=== PATIENT | male | born 1965 | race Two or more races ===

== ENCOUNTER 2021-04-23 20:28 | Inpatient (IN) | payer OTHER ==
[~2021-04-23] VITALS: Ht 165.1 cm; Wt 65.8 kg
[2021-04-23] MEDS: IV NS 1000 ML 1,000 ML IV ONE
[2021-04-23] MEDS: PIPERACILLIN SODIUM/TAZOBACTAM 3.375 G in IV DEXTROSE 5% 50 ML IV ONE (00:10)
[2021-04-23] MEDS ORDERED: LEVO175T7 PO (21:10)
[2021-04-23] MEDS ORDERED: DEXA4TAB PO (21:10)
[2021-04-23 22:47] LABS: HEMATOCRIT 29.7 % (36.7-47.1); MEAN CORPUSCULAR HEMOGLOBIN 29.1 uug (23.8-33.4); MEAN CORPUSCULAR VOLUME 87.2 fL (73.0-96.2); PLATELET COUNT (AUTO) 294 K/uL (152-348)
[2021-04-23 22:53] LABS: CARBON DIOXIDE 29 mmol/L (21-32); CHLORIDE 86 mmol/L (98-107); CREATININE 0.6 mg/dL (0.6-1.3); GLUCOSE 155 mg/dL (74-106); POTASSIUM 3.5 mmol/L (3.5-5.1); UREA NITROGEN, BLOOD 11 mg/dL (7-18)
[2021-04-23] MEDS ORDERED: VANCOMYCIN 1G/D5W 200 ML PIGGYBACK IV ONE (23:15)
[2021-04-23] MEDS ORDERED: VANCOMYCIN IV 200 ML ONE (23:34)
[2021-04-23] MEDS ORDERED: PIPERACILLIN/TAZOBACTAM/D5W 50 ML IV ONE (23:34)
[2021-04-24] MEDS: IV NS 1000 ML 1,000 ML IV ONE
[2021-04-24] MEDS: PIPERACILLIN SODIUM/TAZOBACTAM 3.375 G in IV DEXTROSE 5% 50 ML IV ONE (00:05)
--- NOTE | 2021-04-24 01:09 | NUR ---
PAGED [facility] FOR PANEL CALL
--- NOTE | 2021-04-24 03:34 | NUR ---
Report given to LIN Sen to admit patient at [facility]. Patient in no acute distress, laying in bed at this time.
[2021-04-24 04:00] VITALS: BP 126/81
[2021-04-24] MEDS ORDERED: MORPHINE SULFATE 2 MG/1 ML DISP.SYRIN IV PRN (05:45)
[2021-04-24] MEDS ORDERED: ONDANSETRON 4 MG/2 ML VIAL IV PRN (05:45)
[2021-04-24] MEDS ORDERED: MAGNESIUM HYDROXIDE 30 ML LIQUID UDC PO PRN (05:45)
[2021-04-24] MEDS ORDERED: Z GUARD REMEDY PASTE 57 GM TUBE TOP PRN (05:45)
--- NOTE | 2021-04-24 06:00 | NUR ---
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 Rt pigtail catheter in the right upper anterior chest.Denies chest pain or discomfort. Surgical site intact on anterior neck and upper mid chest.Patient refused to place chest catheter suction at this time .Stated he cannot tolerate it.Iv on right AC 20 g patent and intact.Started IVF fluid tolerated well.Safety measures in place. Assisted patient to bedside commode .BM x1.Call light with in reach. Will endorse to oncoming shift
[2021-04-24] MEDS ORDERED: PIPERACILLIN SODIUM/TAZOBACTAM 3.375 G in IV DEXTROSE 5% 50 ML IV ONE (06:15)
[2021-04-24] MEDS: LEVOTHYROXINE SODIUM 175 MCG TABLET PO SCH (06:23)
[2021-04-24] MEDS: IV NS 1000 ML 1,000 ML IV PRN (06:36)
[2021-04-24] MEDS: DEXAMETHASONE 4 MG TABLET PO SCH ×3 (06:37→21:20)
[2021-04-24 07:32] LABS: HEMATOCRIT 27.4 % (36.7-47.1); MEAN CORPUSCULAR HEMOGLOBIN 29.8 uug (23.8-33.4); MEAN CORPUSCULAR VOLUME 86.9 fL (73.0-96.2); PLATELET COUNT (AUTO) 262 K/uL (152-348)
[2021-04-24 07:46] LABS: ALANINE AMINOTRANSFERASE 82 U/L (16-63); ALKALINE PHOSPHATASE 162 U/L (50-136); ASPARTATE AMINOTRANSFERASE 21 U/L (15-37); BILIRUBIN,TOTAL 0.4 mg/dL (0.2-1.0); CARBON DIOXIDE 29 mmol/L (21-32); CHLORIDE 88 mmol/L (98-107); CREATININE 0.5 mg/dL (0.6-1.3); GLUCOSE 128 mg/dL (74-106); MAGNESIUM 1.8 mg/dL (1.8-2.4); PHOSPHOROUS 3.1 mg/dL (2.5-4.9); POTASSIUM 3.2 mmol/L (3.5-5.1); TOTAL PROTEIN, SERUM 5.4 g/dL (6.4-8.2); UREA NITROGEN, BLOOD 8 mg/dL (7-18)
[2021-04-24 07:49] LABS: THYROID STIMULATING HORMONE 0.693 mIU/mL (0.358-3.740)
[2021-04-24 08:00] VITALS: BP 120/80
--- NOTE | 2021-04-24 08:30 | NUR ---
awake oriented x 4, looks weak, on 10l/mask sat at 95%, on a sitting position, short of breath with activity, tele SR 98, denies of pain, right upper chest tube (pigtail)with an attached container draining serous whitish winter in color, incision on lower neck and midline chest area with steristrips-dry and intact, assisted to bedside commode with minimal assist-had voided and BM, seen by Dr Valadez- with orders, will continue to monitor
[2021-04-24] MEDS: ENOXAPARIN SODIUM 40 MG/0.4 ML DISP.SYRIN SQ SCH (08:41)
[2021-04-24] MEDS ORDERED: POTASSIUM CHLORIDE 20 MEQ TAB.PRT.SR PO ONE (09:30)
[2021-04-24] MEDS: VANCOMYCIN IV 1,000 MG in IV DEXTROSE 5% 250 ML IV SCH ×2 (09:58→18:18)
[2021-04-24] MEDS: POTASSIUM CHLORIDE 50 ML IV SCH ×2 (11:40→12:43)
--- NOTE | 2021-04-24 11:48 | NUR ---
WOUND CARE CONSULT: PT PRESENTS WITH BONY SACRAL AREA, PRESENT ON ADMISSION. RECOMMENDATIONS MADE FOR SKIN PROTECTION. DISCUSSED WITH NURSING STAFF. MD IN AGREEMENT WITH PLAN OF CARE.
[2021-04-24] MEDS ORDERED: PIPERACILLIN SODIUM/TAZOBACTAM 3.375 G in IV DEXTROSE 5% 50 ML IV SCH (12:00)
--- NOTE | 2021-04-24 13:00 | NUR ---
seen by Dr Stockton and spoke to [place] to be transferred to [facility]
[2021-04-24] MEDS: PIPERACILLIN SODIUM/TAZOBACTAM 3.375 G in IV DEXTROSE 5% 50 ML IV SCH ×2 (14:27→20:38)
[2021-04-24 15:52] VITALS: BP 99/60
[2021-04-24] MEDS: ALBUTEROL SULFATE 2.5 MG/ 0.5 ML NEBU NEB PRN ×2 (17:00→21:23)
[2021-04-24] MEDS: IPRATROPIUM BROMIDE 0.5 MG/2.5 ML NEBU NEB PRN ×2 (17:00→21:23)
--- NOTE | 2021-04-24 17:00 | NUR ---
Patient received breathing treatments from respiratory therapist. O2 saturating at 92% on 10L face mask with some labored breathing. Respiratory therapist switched patient to non-rebreather mask with 15L, now saturating 98-99%. Patient tolerating non-rebreather mask well. No signs or symptoms of respiratory distress. Continuous pulse ox at bedside. Will continue to monitor patient.
--- NOTE | 2021-04-24 18:37 | NUR ---
no distress noted, remains on NRB mask at 15l/nc, on continuous pulse oximetry sat at 98%, chest tube pigtail output this shift- 70 ml, at bedside, urine specimen sent earlier, tele ST-[id number], all needs attended and met call light within reach, safety measures maintained
[2021-04-24 20:00] VITALS: BP 124/72
[2021-04-24 20:40] VITALS: BP 124/72
[2021-04-25] VITALS (7 sets, daily range): BP systolic 99–137; BP diastolic 62–84
--- NOTE | 2021-04-25 00:30 | NUR ---
Patient was place on 10LPM via non-rebreather mask by RT at around 2200. Patient now complaining of SOB, though O2 sat at 95%. Titrated O2 back to 15LPM via non-rebreather mask. O2 sat up to 97% and stated he feels better.
[2021-04-25] MEDS: IPRATROPIUM BROMIDE 0.5 MG/2.5 ML NEBU NEB PRN ×3 (00:33→15:54)
[2021-04-25] MEDS: ALBUTEROL SULFATE 2.5 MG/ 0.5 ML NEBU NEB PRN ×3 (00:34→15:54)
[2021-04-25] MEDS: PIPERACILLIN SODIUM/TAZOBACTAM 3.375 G in IV DEXTROSE 5% 50 ML IV SCH ×4 (01:27→19:24)
[2021-04-25] MEDS: VANCOMYCIN IV 1,000 MG in IV DEXTROSE 5% 250 ML IV SCH (03:23)
[2021-04-25] MEDS: IV NS 1000 ML 1,000 ML IV PRN ×2 (03:24→14:36)
[2021-04-25] MEDS: DEXAMETHASONE 4 MG TABLET PO SCH ×3 (06:09→21:21)
[2021-04-25] MEDS: LEVOTHYROXINE SODIUM 175 MCG TABLET PO SCH (06:09)
--- NOTE | 2021-04-25 06:28 | NUR ---
AAOx4. In no apparent distress. Stated he is feeling weak. Denies any pain or SOB. On O2 at 15LPM via non-rebreather mask. O2 sat fluctuates between 93-97%. Sinus tachy on tele with HR of 104/min. Steri strips on neck to chest area dry, intact and clean. Chest tube on left chest area intact and draining. IV site on right FA and right AC intact and patent. IVF infusing. No adverse reaction noted from IV antibiotics. Needs attended to and met. Safety measure maintained and call light within reached.
[2021-04-25 06:34] LABS: HEMATOCRIT 29.1 % (36.7-47.1); MEAN CORPUSCULAR HEMOGLOBIN 29.3 uug (23.8-33.4); MEAN CORPUSCULAR VOLUME 86.7 fL (73.0-96.2); PLATELET COUNT (AUTO) 231 K/uL (152-348)
[2021-04-25 06:54] LABS: CARBON DIOXIDE 31 mmol/L (21-32); CHLORIDE 87 mmol/L (98-107); CREATININE 0.5 mg/dL (0.6-1.3); GLUCOSE 136 mg/dL (74-106); MAGNESIUM 1.8 mg/dL (1.8-2.4); PHOSPHOROUS 3.3 mg/dL (2.5-4.9); UREA NITROGEN, BLOOD 4 mg/dL (7-18)
[2021-04-25 07:10] LABS: POTASSIUM 2.4 mmol/L (3.5-5.1)
--- NOTE | 2021-04-25 07:59 | NUR ---
received patient laying in bed in no apparent distress at this time. patient is alert and oriented x4 telugu speaking. patient currently with pigtail chest tube to right chest in place and patent appears to be draining well. patient currently on 15l nrb tolerating well, continuos pulse oximetry show spo2 at 96% patient with respirations even and non-labored at this time, denies any shortness of breath at this time. patient denies pain at this time. patient currently with iv to right f/a infusing ns at 100cc, iv in place and patent. patient denies any pain or discomfort at this time. reminded patient to use call light for assistance, side rails up x2, call light within reach.
--- NOTE | 2021-04-25 08:10 | NUR ---
relayed critical lab values of k+ 2.7 and calcium 5.7 to [facility] with new order for potassium 40meq po x1 and patassium 40meq iv, orders noted and carried out.
[2021-04-25] MEDS ORDERED: POTASSIUM CHLORIDE 20 MEQ TAB.PRT.SR PO ONE (08:15)
[2021-04-25] MEDS: POTASSIUM CHLORIDE 50 ML IV SCH ×4 (08:50→11:21)
[2021-04-25] MEDS: ENOXAPARIN SODIUM 40 MG/0.4 ML DISP.SYRIN SQ SCH (08:52)
[2021-04-25] MEDS ORDERED: CALCIUM GLUCONATE IV 2 GM in IV NORMAL SALINE 100 ML IV ONE ×2 (10:30)
[2021-04-25] MEDS: VANCOMYCIN IV 1,250 MG in IV DEXTROSE 5% 250 ML IV SCH ×2 (12:23→20:06)
--- NOTE | 2021-04-25 19:30 | NUR ---
Received patient lying in bed. Family at bedside. AAOx4. In no acute distress. Still appears weak. On O2 at 10LPM via simple mask in place. O2 sat fluctuating between 90-95% on continuous pulse oximeter monitor. Denies any pain or SOB at this time. Sinus tachy on tele with HR of 106/min. IV site on right AC and right FA intact and patent. IVF infusing. Steri strip intact to neck and mid chest area. Chest tube intact and draining serous drainage. Needs assessed and attended to. Safety measure initiated and call gil within reached.
[2021-04-25] MEDS: ACETAMINOPHEN 325 MG TABLET PO PRN (19:55)
[2021-04-25] MEDS: MORPHINE SULFATE 4 MG/1 ML DISP.SYRIN IV PRN (21:16)
[2021-04-26] VITALS (8 sets, daily range): BP systolic 117–135; BP diastolic 76–86
[2021-04-26] MEDS: PIPERACILLIN SODIUM/TAZOBACTAM 3.375 G in IV DEXTROSE 5% 50 ML IV SCH ×4 (01:15→20:22)
[2021-04-26] MEDS: ALBUTEROL SULFATE 2.5 MG/ 0.5 ML NEBU NEB PRN (02:28)
[2021-04-26] MEDS: IPRATROPIUM BROMIDE 0.5 MG/2.5 ML NEBU NEB PRN ×2 (02:28→20:56)
[2021-04-26] MEDS: VANCOMYCIN IV 1,250 MG in IV DEXTROSE 5% 250 ML IV SCH (04:17)
[2021-04-26] MEDS: MORPHINE SULFATE 4 MG/1 ML DISP.SYRIN IV PRN ×3 (05:01→21:21)
[2021-04-26] MEDS: IV NS 1000 ML 1,000 ML IV PRN ×2 (05:02→18:54)
[2021-04-26] MEDS: DEXAMETHASONE 4 MG TABLET PO SCH ×3 (05:57→21:27)
[2021-04-26] MEDS: LEVOTHYROXINE SODIUM 175 MCG TABLET PO SCH (06:02)
--- NOTE | 2021-04-26 06:14 | NUR ---
Patient reported sleeping well last night. Remains AOx4. In no acute distress. On O2 at 10LPM via simple mask in place. O2 sat 91%. on continuous pulse oximeter monitor. Denies any SOB. Morphine 4mg via IV q4hrs PRN given for complain of incisional pain and effective. NSR to Sinus tachy on tele with HR of between 90-103/min. IV site on right AC and right FA intact and patent. IVF infusing. No adverse effect noted from IV antibiotics. Steri strip intact to neck and mid chest area. Chest tube intact and draining serosanguineous drainage. Obtained 40ml of output from chest tube. Needs attended to and met. Safety measure maintained and call gil within reached.
[2021-04-26 06:31] LABS: HEMATOCRIT 29.3 % (36.7-47.1); MEAN CORPUSCULAR HEMOGLOBIN 29.1 uug (23.8-33.4); MEAN CORPUSCULAR VOLUME 88.5 fL (73.0-96.2); PLATELET COUNT (AUTO) 202 K/uL (152-348)
[2021-04-26 06:52] LABS: MAGNESIUM 1.9 mg/dL (1.8-2.4); PHOSPHOROUS 4.8 mg/dL (2.5-4.9)
--- NOTE | 2021-04-26 07:15 | NUR ---
Received patient report from animated cartoons painter nurse. Arrived to patient resting comfortably in room with no apparent signs of distress or discomfort. Patient currently receiving 10L of Oxygen Via Simple Mask currently saturating at 94-95%. IV site intact and patent. Bed left in lowest position with call light within reach. Comfort measure provided. Will continue to monitor patient throughout shift.
[2021-04-26] MEDS: ENOXAPARIN SODIUM 40 MG/0.4 ML DISP.SYRIN SQ SCH (08:14)
[2021-04-26 08:20] LABS: ABG BASE EXCESS 2.1 mmol/L; ABG HCO3 27.9 mmol/L; ABG PCO2 48.3 mmHg (35.0-45.0); ABG PH 7.379 (7.350-7.450); ABG PO2 67.2 mmHg (75.0-100.0); ABG SITE RIGHT RADIAL; ABG TOTAL HEMOGLOBIN 13.1 G/dL (13.5-18.0); COHb 0.6 % (0.5-1.5); MetHb 0.1 % (0.0-1.5)
[2021-04-26] MEDS: POTASSIUM CHLORIDE 20 MEQ TAB.PRT.SR PO SCH ×2 (09:50→12:18)
--- NOTE | 2021-04-26 12:45 | NUR ---
Lab notified of patients current trough level of 31.4. Pharmacy notified and instructed to hold dose of Vancomycin. Noted and carried.
--- NOTE | 2021-04-26 14:00 | NUR ---
Noted desaturation at 85 - 88% with activity or exertion. Patients saturation returned to 93-94% upon resting.
--- NOTE | 2021-04-26 18:46 | NUR ---
O2 at 10L via Simple Mask saturating at 93-94%. Chest Tube pigtail with 57cc of drainage throughout shift. Patient kept comfortable with moderate high back rest.
[2021-04-26] MEDS ORDERED: VANCOMYCIN IV 1,250 MG in IV DEXTROSE 5% 250 ML IV SCH (20:00)
[2021-04-27] VITALS: BP 128/90
[2021-04-27] MEDS: PIPERACILLIN SODIUM/TAZOBACTAM 3.375 G in IV DEXTROSE 5% 50 ML IV SCH ×2 (01:34→08:27)
[2021-04-27 04:00] VITALS: BP 125/91
[2021-04-27] MEDS: IPRATROPIUM BROMIDE 0.5 MG/2.5 ML NEBU NEB PRN ×2 (05:51→19:26)
[2021-04-27] MEDS: ALBUTEROL SULFATE 2.5 MG/ 0.5 ML NEBU NEB PRN ×2 (05:51→19:26)
[2021-04-27] MEDS: LEVOTHYROXINE SODIUM 175 MCG TABLET PO SCH (06:01)
[2021-04-27] MEDS: DEXAMETHASONE 4 MG TABLET PO SCH ×3 (06:01→21:37)
[2021-04-27 06:52] LABS: HEMATOCRIT 28.4 % (36.7-47.1); MEAN CORPUSCULAR HEMOGLOBIN 29.8 uug (23.8-33.4); MEAN CORPUSCULAR VOLUME 88.2 fL (73.0-96.2); PLATELET COUNT (AUTO) 174 K/uL (152-348)
[2021-04-27 07:04] LABS: CREATININE 1.9 mg/dL (0.6-1.3); MAGNESIUM 2.1 mg/dL (1.8-2.4); PHOSPHOROUS 4.2 mg/dL (2.5-4.9); POTASSIUM 3.7 mmol/L (3.5-5.1)
--- NOTE | 2021-04-27 08:00 | NUR ---
AWAKE ALERT AND ORIENTED X3 DENIES SOB AT REST. ABLE TO TOLERATE TRANSFER FROM BED TO [facility] FOR B & B INDEPENDENTLY. SR ON MONITOR. OBSERVED
[2021-04-27] MEDS: ENOXAPARIN SODIUM 40 MG/0.4 ML DISP.SYRIN SQ SCH (08:24)
[2021-04-27] MEDS: ACETAMINOPHEN 325 MG TABLET PO PRN ×2 (08:26→15:12)
[2021-04-27] MEDS: IV NS 1000 ML 1,000 ML IV PRN ×2 (08:29→20:53)
--- NOTE | 2021-04-27 11:00 | NUR ---
SEEN BY DR BONNER REVIEWED CHEST X-RAY WITH ORDER FOR PIGTAIL TUBE TO BE CONNECTED TO PLEURE-VAC TO -20 TO WALL SUCTION. STILL WITH MINIMAL PINK-LIKED COLOR DRAINAGE FROM THE PIG-TAIL. CONTINUE MAC MONITORING
[2021-04-27 12:00] VITALS: BP 117/83
[2021-04-27] MEDS: CEFEPIME HCL 1 G in IV DEXTROSE 5% 50 ML IV SCH (13:17)
[2021-04-27 16:06] VITALS: BP 122/85
--- NOTE | 2021-04-27 17:16 | NUR ---
SEEN BY DR JEAN FOR FOLLOW-UP SEE NOTES. PATIENT MEDICATED WITH TYLENOL FOR PAIN OVER INCISION SITE WITH GOOD RELIEF. TOLERATING PLEURE-VAC ON -20 TO WALL SUCTION.SR ON MONITOR
[2021-04-27 20:09] VITALS: BP 122/85
[2021-04-27] MEDS: MORPHINE SULFATE 4 MG/1 ML DISP.SYRIN IV PRN (20:20)
[2021-04-28 00:06] VITALS: BP 120/82
[2021-04-28 04:09] VITALS: BP 134/83
[2021-04-28] MEDS: IPRATROPIUM BROMIDE 0.5 MG/2.5 ML NEBU NEB PRN ×2 (06:12→16:59)
[2021-04-28] MEDS: ALBUTEROL SULFATE 2.5 MG/ 0.5 ML NEBU NEB PRN ×2 (06:12→16:59)
[2021-04-28] MEDS: LEVOTHYROXINE SODIUM 175 MCG TABLET PO SCH (06:43)
[2021-04-28] MEDS: DEXAMETHASONE 4 MG TABLET PO SCH ×3 (06:43→21:50)
[2021-04-28 07:45] LABS: HEMATOCRIT 27.7 % (36.7-47.1); MEAN CORPUSCULAR HEMOGLOBIN 30.7 uug (23.8-33.4); MEAN CORPUSCULAR VOLUME 89.1 fL (73.0-96.2); PLATELET COUNT (AUTO) 157 K/uL (152-348)
--- NOTE | 2021-04-28 07:53 | NUR ---
Slept throughout the night. Denies chest pain. Able to make needs known. Chest tube in place connected to -20 wall pleurvac suction. IV site intact. On 8L simple mask satting at 96%. No disress noted. Will endorse to day shift.
[2021-04-28] MEDS: ACETAMINOPHEN 325 MG TABLET PO PRN (08:25)
[2021-04-28 08:28] LABS: MAGNESIUM 2.3 mg/dL (1.8-2.4); PHOSPHOROUS 4.3 mg/dL (2.5-4.9); POTASSIUM 3.8 mmol/L (3.5-5.1); VANCOMYCIN,RANDOM 20.1 ug/mL (18.0-26.0)
[2021-04-28] MEDS ORDERED: ENOXAPARIN SODIUM 60 MG/0.6 ML DISP.SYRIN SQ ONE (09:00)
[2021-04-28] MEDS: MORPHINE SULFATE 4 MG/1 ML DISP.SYRIN IV PRN ×2 (10:13→15:54)
[2021-04-28 12:00] VITALS: BP 126/75
--- NOTE | 2021-04-28 13:59 | NUR ---
PATIENT CONTINUE TO TOLERATE PIGTAIL VIA PLEURE-VAC SET AT -20, SATURATING 98% ON 8L VIA MASK. CONTINUE WITH PAIN MANAGEMENTST ON MONITOR 105-110/MIN. AFEBRILE
[2021-04-28] MEDS: CEFEPIME HCL 1 G in IV DEXTROSE 5% 50 ML IV SCH (14:18)
[2021-04-28] MEDS ORDERED: IV 1/2NS 1000 ML 1,000 ML IV PRN (16:00)
[2021-04-28 16:28] VITALS: BP 130/85
[2021-04-28] MEDS ORDERED: VANCOMYCIN IV 500 MG in IV DEXTROSE 5% 100 ML IV ONE (20:00)
--- NOTE | 2021-04-28 20:02 | NUR ---
Spoke with Hussain from [facility] transport, latest VS given and time of pickle processor.
[2021-04-28 20:45] VITALS: BP 143/96
[2021-04-28] MEDS ORDERED: ENOXAPARIN SODIUM 60 MG/0.6 ML DISP.SYRIN SQ SCH (21:00)
--- NOTE | 2021-04-28 21:18 | NUR ---
Patient was scrap picker by Ambulance in route to [facility] as ordered. VS taken 98.6, 101, 26, 143/96. Complaint of 5-6/10 upper mid chest incision site and was given Morphine 1554. IVF disconnected from IV pump with Vancocin IV ATB running at 2000 dose, now clamped during transport. Patient awake, alert and oriented x 4. Not in distress. Continuos O2 at 8L via mask saturating 95% and ST on the monitor HR 101bpm. Chest tube clamped during transport with pinkish color output. Report given to Kaleigh Lopez RN at [id number]
--- NOTE | 2021-04-28 21:20 | NUR ---
Patient refused picture taken on his sacral area. Receiving nurse Kaleigh CEBALLOS, [facility] made aware.
[2021-04-29] MEDS ORDERED: PROTEIN SUPPLEMENT (PROSTAT) 30 ML LIQUID PO SCH (08:00)
[2021-04-29] MEDS ORDERED: ARGININE/GLUTAMINE/CALCIUM BMB 1 EACH POWD.PACK PO SCH (09:00)
[2021-04-29] MEDS ORDERED: ENSURE ENLIVE (VAN) 240 ML LIQUID PO SCH (09:00)
== END 2021-04-28 21:15 | disposition short-term general hospital (02) | DRG 199 ==
LOC: ER 20:37 → TELE-TD3 04-24 04:03
PROVIDERS: ADMIT Student in an Organized Health Care Education/Training Program; ATTEND Student in an Organized Health Care Education/Training Program
DX: J93.9 Pneumothorax, unspecified (principal); J96.01 Acute respiratory failure with hypoxia; J18.9 Pneumonia, unspecified organism; N17.0 Acute kidney failure with tubular necrosis; T81.83XA Persistent postprocedural fistula, initial encounter; E87.1 Hypo-osmolality and hyponatremia; C78.01 Secondary malignant neoplasm of right lung; E44.0 Moderate protein-calorie malnutrition; J98.19 Other pulmonary collapse; I82.612 Acute embolism and thrombosis of superficial veins of left upper extremity; Z66 Do not resuscitate; C73 Malignant neoplasm of thyroid gland; D64.9 Anemia, unspecified; E83.51 Hypocalcemia; E87.6 Hypokalemia; E89.0 Postprocedural hypothyroidism; Z79.890 Hormone replacement therapy; Z85.850 Personal history of malignant neoplasm of thyroid; Z20.822 Contact with and (suspected) exposure to COVID-19; R74.01 Elevation of levels of liver transaminase levels; Z68.24 Body mass index [BMI] 24.0-24.9, adult; J98.2 Interstitial emphysema
CPT/HCPCS: 36415; 36600; 71045; 83550; 83735; 83930; 83935; 84100; 84443; 85025; 86140; 87040; 87070; 87075; 87077; 93005; 93307; 94640; 94760; A4217; A4663; A6209; G0378; J0610; J0692; J1650; J2270; J2543; J3370; J3480; J3490; J3590; J7030; J7060; J8540